=== PATIENT | male | born 1960 | race Two or more races ===

== ENCOUNTER 2021-01-09 10:07 | Emergency (ER) | payer SELFPAY ==
[~2021-01-09] VITALS: Ht 177.8 cm; Wt 136.1 kg
[2021-01-09 11:09] LABS: BASOPHILS % (AUTO) 0.6 % (0.0-2.0); EOSINOPHILS % (AUTO) 3.2 % (0.0-3.0); HEMATOCRIT 52.2 % (42.0-52.0); HEMOGLOBIN 15.5 G/DL (14.2-18.0); LYMPHOCYTES % (AUTO) 21.7 % (20.0-45.0); MEAN CORPUSCULAR VOLUME 85 FL (80-99); MONOCYTES % (AUTO) 8.4 % (1.0-10.0); NEUTROPHILS % (AUTO) 66.1 % (45.0-75.0); PLATELET COUNT 202 K/UL (150-450); RED BLOOD COUNT 6.14 M/UL (4.70-6.10); RED CELL DISTRIBUTION WIDTH 16.2 % (11.6-14.8); WHITE BLOOD COUNT 6.9 K/UL (4.8-10.8)
[2021-01-09 11:13] LABS: CALCIUM 8.9 MG/DL (8.5-10.1); CREATININE 1.9 MG/DL (0.55-1.30); POTASSIUM 4.3 MMOL/L (3.5-5.1)
[2021-01-09 11:14] VITALS: BP 125/72
--- NOTE | 2021-01-09 11:14 | Emergency Room Report ---
History of Present Illness General Chief Complaint: Dyspnea/Respdistress Source: Patient Present Illness HPI 60-year-old male with history of hypertension and diabetes here with shortness of breath and chest congestion. Patient says that over the past several days he began to notice the symptoms gradually worsening. Unknown whether he has been around a sick contacts. Has not been tested for Covid. Denies fevers, chills, chest pain, palpitations, cough, back pain, abdominal pain, nausea, vomiting, diarrhea, dysuria. Allergies: Coded Allergies: MORPHINE (Verified Allergy, Unknown, 01/09/21) COVID-19 Screening Contact w/high risk pt: No Experienced COVID-19 symptoms?: Yes COVID-19 Testing performed FLUXER: No Nursing Documentation-PMH Past Medical History: No History, Except For Hx Hypertension: Yes Hx Pacemaker: Yes Review of Systems All Other Systems: negative except mentioned in HPI Physical Exam Vital Signs Date Time Temp Pulse Resp B/P (MAP) Pulse Ox O2 Delivery O2 Flow Rate FiO2 01/09/21 10:10 98.2 102 18 162/107 (125) 94 Room Air Sp02 EP Interpretation: reviewed, normal General Appearance: no apparent distress, alert, non-toxic, other - Morbidly obese Head: normocephalic, atraumatic Eyes: bilateral eye normal inspection, bilateral eye PERRL ENT: hearing grossly normal, normal pharynx, no angioedema, normal voice Neck: full range of motion, supple/symm/no masses Respiratory: chest non-tender, lungs clear, normal breath sounds, speaking full sentences Cardiovascular #1: regular rate, rhythm, no edema Cardiovascular #2: 2+ carotid (R), 2+ carotid (L), 2+ radial (R), 2+ radial (L), 2+ dorsalis pedis (R), 2+ dorsalis pedis (L) Gastrointestinal: normal bowel sounds, non tender, soft, non-distended, no guarding, no rebound Rectal: deferred Genitourinary: normal inspection, no CVA tenderness Musculoskeletal: back normal, normal range of motion, gait/station normal, non- tender Neurologic: alert, motor strength/tone normal, oriented x3, sensory intact, responsive, speech normal Psychiatric: judgement/insight normal, memory normal, mood/affect normal, no suicidal/homicidal ideation Lymphatic: no adenopathy Medical Decision Making Diagnostic Impression: Primary Impression: Congestion of upper respiratory tract Additional Impression: Suspected COVID-19 virus infection ER Course EKG: NSR, no ischemia, intervals WNL. No ectopy. Rate 85 bpm Rhythm strip: patient monitored for arrhythmias - no malignant dysrhythmias, runs of PVCs, nor pauses noted CXR: No infiltrate/effusion. Mediastinum within normal limits. No consolidations. No free air under the diaphragm. No bony abnormalities. Left upper chest defibrillator in place Laboratory Tests Test 01/09/21 10:15 01/09/21 10:24 Sodium Level 145 MMOL/L (136-145) Potassium Level 4.3 MMOL/L (3.5-5.1) Chloride Level 109 MMOL/L (98-107) H Carbon Dioxide Level 24 MMOL/L (21-32) Anion Gap 12 mmol/L (5-15) Blood Urea Nitrogen 26 mg/dL (7-18) H Creatinine 1.9 MG/DL (0.55-1.30) H Estimated Glomerular Filtration Rate 36.5 mL/min (>60) Glucose Level 172 MG/DL (74-106) H Calcium Level 8.9 MG/DL (8.5-10.1) Total Bilirubin 0.7 MG/DL (0.2-1.0) Aspartate Amino Transferase (AST) 15 U/L (15-37) Alanine Aminotransferase (ALT) 20 U/L (12-78) Alkaline Phosphatase 63 U/L (46-116) Troponin I 0.049 ng/mL (0.000-0.056) Pro-B-Type Natriuretic Peptide 7439 pg/mL (0-125) H Total Protein 7.2 G/DL (6.4-8.2) Albumin 3.5 G/DL (3.4-5.0) Globulin 3.7 g/dL Albumin/Globulin Ratio 0.9 (1.0-2.7) L White Blood Count 6.9 K/UL (4.8-10.8) Red Blood Count 6.14 M/UL (4.70-6.10) H Hemoglobin 15.5 G/DL (14.2-18.0) Hematocrit 52.2 % (42.0-52.0) H Mean Corpuscular Volume 85 FL (80-99) Mean Corpuscular Hemoglobin 25.2 PG (27.0-31.0) L Mean Corpuscular Hemoglobin Concent 29.7 G/DL (32.0-36.0) L Red Cell Distribution Width 16.2 % (11.6-14.8) H Platelet Count 202 K/UL (150-450) Mean Platelet Volume 8.9 FL (6.5-10.1) Neutrophils (%) (Auto) 66.1 % (45.0-75.0) Lymphocytes (%) (Auto) 21.7 % (20.0-45.0) Monocytes (%) (Auto) 8.4 % (1.0-10.0) Eosinophils (%) (Auto) 3.2 % (0.0-3.0) H Basophils (%) (Auto) 0.6 % (0.0-2.0) 60-year-old male here with chest congestion. Patient was hemodynamically stable and neurovascularly intact. He had a normal oxygen saturation of 98 to 100% on room air throughout his stay in the emergency department. EKG unremarkable. Chest x-ray showed cardiomegaly and proper placement of his defibrillator but was otherwise negative for any acute abnormalities. CBC normal. CMP showed evidence of patient's CKD with a GFR of around 36. Troponin negative. BNP was greater than 7000 however patient denies any shortness of breath and had normal oxygen saturation in the emergency department. He was given gentle hydration of around 500 cc IV normal saline over the course of several hours. Covid PCR was obtained and currently pending. Patient was told to refrain from contact with other individuals and to maintain social distancing. He was told to return to the emergency department any worsening symptoms. He expressed understanding and was discharged. Last Vital Signs Date Time Temp Pulse Resp B/P (MAP) Pulse Ox O2 Delivery O2 Flow Rate FiO2 01/09/21 10:10 98.2 102 18 162/107 (125) 94 Room Air Scripts Albuterol Sulfate* (Albuterol Sulfate Hfa*) 8.5 Gm Hfa.aer.ad 2 PUFF INH Q3H, #1 INH Prov: Jaime Hernandes M.D. 01/09/21 Referrals: NOT CHOSEN IPA/,REFERRING (PCP) Jaime Hernandes M.D. Jan 09, 2021 11:14
[2021-01-09 11:24] LABS: ALBUMIN 3.5 G/DL (3.4-5.0); ALBUMIN/GLOBULIN RATIO 0.9 (1.0-2.7); BILIRUBIN,TOTAL 0.7 MG/DL (0.2-1.0)
[2021-01-09] MEDS ORDERED: ALBUTEROL SULF8.5 G1 INH (12:14)
--- NOTE | 2021-01-09 14:34 | Diagnostic Imaging Report ---
Indication: Shortness of breath Technique: One view of the chest Comparison: none Findings: The left costophrenic angle is cut off exam. The heart is enlarged. There is a left chest AICD. No definite infiltrate, effusion, or congestion, although left effusion not excludable Impression: Cardiomegaly No definite acute process
[2021-01-09 15:57] VITALS: BP 125/72
== END 2021-01-09 18:58 | disposition home or self-care (01) ==
LOC: EMR 10:56
DX: R09.89 Other specified symptoms and signs involving the circulatory and respiratory systems (principal); I10 Essential (primary) hypertension; E11.9 Type 2 diabetes mellitus without complications; Z20.828 Contact with and (suspected) exposure to other viral communicable diseases; Z95.0 Presence of cardiac pacemaker; Z88.5 Allergy status to narcotic agent
CPT/HCPCS: 36415; 71045; 80053; 83880; 84484; 85025; 93005; 96360; 99284